=== PATIENT | female | born 1930 ===

== ENCOUNTER → 2016-11-03 | Outpatient (CLI) | payer BC, OTHER ==
[2016-11-03 13:25] LABS: BASO % 0.5 %; BASO ABS # 0.02 K/uL (0-0.2); COMPLETE YES; EOS % 3.1 %; HEMATOCRIT 40.9 % (37-47); IG% 0.2 %; LYMPH % 30.7 %; MEAN CELL VOLUME 94.7 fL (80-100); MEAN CORPUSCULAR HEMOGLOBIN 30.3 pg (25-34); MEAN PLATELET VOLUME 9.6 fL (7.4-10.4); MONO % 8.3 %; NEUT % 57.2 %; PLATELET COUNT 199 K/uL (130-400); RED BLOOD COUNT 4.32 M/uL (4.2-5.4); WHITE BLOOD COUNT 4.23 K/uL (4.8-10.8)
[2016-11-03 13:46] LABS: ALT/SGPT 19 U/L (12-78); BLOOD UREA NITROGEN 17 mg/dl (7-18); BUN/CREATININE RATIO 23.2 (10-20); CALCIUM 9.1 mg/dl (8.5-10.1); CARBON DIOXIDE 31 mmol/L (21-32); CHLORIDE 109 mmol/L (98-107); CREATININE 0.73 mg/dl (0.60-1.20); GLUCOSE 88 mg/dl (70-99); POTASSIUM 4.3 mmol/L (3.5-5.1); SODIUM 144 mmol/L (136-145)
[2016-11-03 13:53] LABS: ALB/GLOB RATIO 1.1 (0.9-2); ALKALINE PHOSPHATASE 75 U/L (45-117); AST/SGOT 17 U/L (15-37); CHOLESTEROL 230 mg/dl (0-200); CHOLESTEROL/HDL RATIO 3.6; HDL CHOLESTEROL 64 mg/dl; LDL CHOLESTEROL CALCULATED 134 mg/dl; TRIGLYCERIDES 161 mg/dl (0-150); VERY LOW DENSITY LIPOPROT CALC 32 mg/dl
== END | disposition home or self-care (01) ==
LOC: C.LABMFLN 09:26
PROVIDERS: ATTEND Family Medicine
DX: H81.09 Meniere's disease, unspecified ear (principal); E78.5 Hyperlipidemia, unspecified; E03.9 Hypothyroidism, unspecified

== ENCOUNTER → 2016-11-28 | Outpatient (CLI) | payer OTHER | END | disposition home or self-care (01) | LOC: C.LABMFLN 10:16 | PROVIDERS: ATTEND Family Medicine | DX: R39.15 Urgency of urination (principal) ==

== ENCOUNTER → 2017-05-09 | Outpatient (CLI) | payer OTHER | END | disposition home or self-care (01) | LOC: C.PATHSPEC 16:52 | PROVIDERS: ATTEND Dermatology | DX: D04.9 Carcinoma in situ of skin, unspecified (principal) ==

== ENCOUNTER → 2017-06-07 | Outpatient (CLI) | payer OTHER, BC | END | disposition home or self-care (01) | LOC: C.PATHSPEC 16:44 | PROVIDERS: ATTEND Dermatology | DX: D23.61 Other benign neoplasm of skin of right upper limb, including shoulder (principal); L83 Acanthosis nigricans ==

== ENCOUNTER → 2017-09-10 | Outpatient (CLI) | payer OTHER, BC | END | disposition home or self-care (01) | LOC: C.LABMFLN 09:47 | PROVIDERS: ATTEND Family Medicine | DX: Z87.898 Personal history of other specified conditions (principal); Z87.448 Personal history of other diseases of urinary system ==